=== PATIENT | female | born 1960 | race Caucasian/White ===

== ENCOUNTER → 2018-09-19 07:42 | Outpatient (CLI) | payer OTHER, SELFPAY ==
[2018-09-19 10:15] LABS: Cancer Antigen 125 < 6 U/mL (0-35)
== END ==
PROVIDERS: PCP Family Medicine Geriatric Medicine; Visit Provider Obstetrics & Gynecology
DX: N95.0 Postmenopausal bleeding (principal); Z80.9 Family history of malignant neoplasm, unspecified
CPT/HCPCS: 36415; 86304

== ENCOUNTER 2018-10-27 06:43 | Day surgery (SDC) | payer OTHER, SELFPAY ==
[2018-10-11 15:03] VITALS: BMI 33.5
[2018-10-27] VITALS (7 sets, daily range): BP systolic 101–125; BP diastolic 64–80; PULSE 77–95; RESP 10–18; TEMP 36.2–36.9; O2SAT 96–99; BMI 33.5
--- NOTE | 2018-10-27 | PATH_ITS ---
[facility] Accession Number: [id number] . 01 Material submitted: . endometrium - ENDOMETRIAL POLYP . 02 Diagnosis: Endometrial Polyp, Excision: Secretory endometrium with features of endometrial polyp. Negative for atypical hyperplasia or malignancy. [facility]/10/30/2018 . 02 Electronically signed: . Zenon Williamson MD, PhD, Pathologist NPI- [id number] . 01 Gross description: . ENDOMETRIAL POLYP: Received in formalin are minute fragments of mucoid and hemorrhagic material measuring 1.7 x 0.5 x 0.3 cm in aggregate. Submitted in toto in 1 cassette. /CKI /CKI . 02 Pathologist provided ICD-10: N84.0 . 02 CPT . 098053 Performed at: 01 [facility] [address] [id number] MD Oleksandr Bueno MD Phone: [phone] Performed at: 02 [facility] [address] [place], [place] [id number] MD Melissa Lomeli MD Phone: [phone]
--- NOTE | 2018-10-27 07:05 | PM.PREOP ---
Pre-operative Note Interval Note History & Physical reviewed/Exam performed by Physician: Yes Changes to H&P: No
--- NOTE | 2018-10-27 07:06 | PM.HP.1 ---
History of Present Illness Date Patient Seen: 10/27/18 Time Patient Seen: 07:06 Chief complaint: [id number] D&C HYSTEROSCOPY Narrative: Patient is a 58-year-old with postmenopausal bleeding and a thickened endometrial lining She is here for a D&C hysteroscopy and possible removal of polyp Patient History Medical History (Updated 10/11/18 @ 15:07 by Lana Teran RN) Nancy duct, cyst (Acute) HTN (hypertension) (Acute) History of endometrial biopsy (Acute 09/19/18) Postmenopausal bleeding (Acute) Surgical History (Updated 10/11/18 @ 15:07 by Lana Teran RN) History of colonoscopy (Acute) Social History Smoking Status: Unknown if ever smoked Family & Social History Tobacco & Substance use: Smoking Status Unknown if ever smoked Meds Home Medications Medication Instructions Recorded Confirmed Type losartan 100 mg tablet 100 mg PO DAILY 09/19/18 10/11/18 History Allergies Allergy/AdvReac Type Severity Reaction Status Date / Time epinephrine AdvReac reaction Verified 10/27/18 07:08 at dentist Exam Vital Signs (past 8 hours): HEENT: No thyromegaly, no anterior cervical or supraclavicular lymphadenopathy. Lungs:Clear to auscultation bilaterally, no wheezes. Cardiovascular: Regular rate and rhythm, no murmurs, rubs, or gallops. Abdomen: No scars. No hepatosplenomegaly. No masses palpable. External genitalia: Normal Vagina: Normal Cervix: Normal Bimanual exam: 7 Week size uterus. Mobile. Rectal: No masses. Assessment & Plan Assessment & Plan narrative: Assessment: 58-year-old with postmenopausal bleeding and a thickened endometrial lining Plan: D&C hysteroscopy with possible polypectomy The risks, benefits, and alternatives to the procedure were explained to the patient. The risks including bleeding, infection, and uterine perforation. She understands these risks and agrees to proceed. A full PAR-Q was held and consent form was signed. Time Spent With Patient Time with patient: 15-24 minutes
[2018-10-27] MEDS: LACTATED RINGERS 1,000 ML 42 ML IV (07:07)
--- NOTE | 2018-10-27 08:02 | SUR.OPER ---
Lithotomy on padded OR bed, head on pillow, arms secured on padded arm boards at <90 degrees abduction. Legs secured in padded yellow fins stirrups.
--- NOTE | 2018-10-30 07:03 | P.OP_ITS ---
Operative Date/Time/Diagnoses Date of procedure: 10/27/18 Time of procedure: 08:45 Pre-op diagnosis: Postmenopausal bleeding Thickened endometrial lining Post-op diagnosis: same Procedure: Procedures Operation Date: 10/27/18 07:45 Actual Procedures Side Surgeon p Hysteroscopy D&C Tamy Gill MD Indications: Postmenopausal bleeding Thickened endometrial lining Surgeon: Tamy Gill Anesthesia Type: General (LMA) Operative Notes Findings: Seven week size anteverted uterus Polyp originating from the left cornual area Polyp measured 1-1/2 by 1 cm Both fallopian tube ostia observed Closure Type: not applicable Specimen(s): endometrial polyp Estimated blood loss (mL): 5 Blood products transfused: none Procedure in detail: After informed consent was obtained, the patient was taken to the operating room where she was placed in the dorsal supine position. After adequate LMA general anesthesia was achieved, she was placed in the dorsal lithotomy position, and prepped and draped in the usual sterile fashion. A time-out was performed. A bivalve speculum was placed into the vagina and the anterior lip of the cervix grasped with a single-tooth tenaculum. Cervical os was sequentially dilated until the hysteroscope could pass easily into the endo metrial cavity. Initial inspection with the hysteroscope revealed the findings noted above. The hysteroscope was removed. The cervix was dilated to the # 8 Hegar dilator. The resectoscope was placed into the endometrial cavity. The polyp was resected in 2 pieces with settings at 60 cut and 40 cautery. Hemostasis was achieved. The instruments were removed from the uterus. The single-tooth tenaculum was removed from the anterior lip of the cervix. The bivalve speculum was removed from the vagina. Sponge, lap, and instrument counts were correct x2. The patient tolerated the procedure well, and was taken to PACU in stable condition. Complications: none Post-operative Condition: stable Disposition: PACU Plan for aftercare: Home after recovery
== END 2018-10-27 09:07 | disposition home or self-care (01) ==
PROVIDERS: PCP Family Medicine Geriatric Medicine; Visit Provider Obstetrics & Gynecology
PROC: 0UDB8ZZ Extraction of Endometrium, Via Natural or Artificial Opening Endoscopic (ICD-10-PCS; CPT 58558; principal; 2018-10-27 07:45)
DX: N84.0 Polyp of corpus uteri (principal); I10 Essential (primary) hypertension
CPT/HCPCS: 58558; J1100; J1885; J2405; J2704; J3010

== ENCOUNTER → 2020-09-16 15:37 | Outpatient (CLI) | payer OTHER, SELFPAY ==
[2020-09-16 16:16] LABS: Estimated Glomerular Filt Rate > 60.0 mL/min (>60)
== END ==
PROVIDERS: PCP Family Medicine; Referring Provider Surgery; Visit Provider Surgery
DX: K57.92 Diverticulitis of intestine, part unspecified, without perforation or abscess without bleeding (principal)
CPT/HCPCS: 36415; 82565

== ENCOUNTER → 2020-09-26 07:57 | Outpatient (CLI) | payer OTHER, SELFPAY ==
--- NOTE | 2020-09-26 08:35 | DI.CT.S_ITS ---
PROCEDURE: CT ABDOMEN PELVIS W CON INDICATIONS: Diverticulitis, ongoing symptoms TECHNIQUE: After the administration of intravenous contrast, 5 mm thick sections acquired from the diaphragm to the symphysis. 5 mm coronal and sagittal reformats were acquired. For radiation dose reduction, the following was used: automated exposure control, adjustment of mA and/or kV according to patient size. COMPARISON: None. FINDINGS: Image quality: Excellent. ABDOMEN: Lung bases: Lung bases are clear. Heart size is normal. Solid organs: Diffuse hepatic steatosis. Enlargement of the left lobe of the liver relative to the right lobe. No focal liver masses. Gallbladder is unremarkable. Biliary system is non dilated. Pancreas enhances normally. Spleen is normal in size and enhancement. No adrenal nodules. Kidneys demonstrate normal size and enhancement, without hydronephrosis. Peritoneum and bowel: Bowel loops demonstrate normal wall thickness and caliber. No free fluid or air. Sigmoid diverticulosis without evidence of diverticulitis. Nodes and vessels: No retroperitoneal or mesenteric adenopathy by size criteria. Aorta and inferior vena cava are normal in size. Miscellaneous: No ventral hernias. PELVIS: Genitourinary: Bladder wall thickness is normal. Miscellaneous: No inguinal hernias or adenopathy. Bones: No suspicious bony lesions. No vertebral body compression fractures. Lumbar degenerative change with at least moderate canal stenosis at L4-L5. There is a calcified left posterior lateral disc protrusion at L3-L4 narrowing the left lateral recess. IMPRESSION: 1. Diffuse hepatic steatosis and question of developing cirrhotic change. 2. Sigmoid diverticulosis without evidence of diverticulitis. 3. Left lateral recess stenosis at L3-L4. Central canal stenosis at L4-L5. 4. No evidence of acute abdominal process. Dictated by: Benja Metzger M.D. on 09/26/2020 at 9:01 Approved by: Benja Metzger M.D. on 09/26/2020 at 9:04
== END ==
PROVIDERS: PCP Family Medicine; Referring Provider Surgery; Visit Provider Surgery
DX: K57.32 Diverticulitis of large intestine without perforation or abscess without bleeding (principal); M48.061 Spinal stenosis, lumbar region without neurogenic claudication
CPT/HCPCS: 74177; Q9967

== ENCOUNTER → 2020-11-26 16:14 | Outpatient (CLI) | payer OTHER, SELFPAY ==
[2020-11-26 17:02] LABS: COVID19 -Nasal RAPID Negative (Negative)
== END ==
PROVIDERS: PCP Family Medicine; Visit Provider Surgery
DX: Z20.822 Contact with and (suspected) exposure to COVID-19 (principal)
CPT/HCPCS: 87635; C9803

== ENCOUNTER 2020-11-27 08:01 | Day surgery (SDC) | payer OTHER, SELFPAY ==
[2020-11-27 09:45] VITALS: BP 131/84; PULSE 82; RESP 14; TEMP 36.6; O2SAT 97; BMI 36.4
[2020-11-27] MEDS: SODIUM CHLORIDE 0.9% 1,000 ML 200 ML IV (09:58)
--- NOTE | 2020-11-27 11:19 | PM.HP.1 ---
History of Present Illness History of Present Illness Date Patient Seen: 11/27/20 Time Patient Seen: 11:19 Chief complaint: DX COLONOSCOPY Narrative: This is a 60-year-old woman with history of diverticulosis, hypertension, mitral valve prolapse, abdominal surgery for uterine cyst. She has a strong family history of colon cancer. Her sister of colon cancer at age 46, and her brother of colon cancer at age 58. Her last colonoscopy was for years ago, and she was told to have a repeat colonoscopy in 4 years. She has had diverticulitis 3 months ago, which was treated with antibiotics. She occasionally has a twinge in the left side of her abdomen, which she thinks may be due to a problem in her spine. ROS: She reports some night sweats in addition to the other symptoms mentioned above. Thirteen system review is otherwise negative other than as mentioned below and in HPI. PE: GENERAL: Well groomed and cooperative. Appears stated age. Answers questions promptly and appropriately. Vital signs noted. HENT: Normocephalic, atraumatic. Hearing intact. EYES: Conjunctiva pink, sclera white, no periorbital swelling. CARDIOVASCULAR: Regular rate. No pedal edema. RESPIRATORY: Non-tachypneic, breathing comfortably on room air. GASTROINTESTINAL: Abdomen soft and non-distended, no palpable masses, mild tenderness to palpation left lower quadrant GENITALURINARY: No flank tenderness. MUSCULOSKELETAL: Equal tone and mass bilaterally. SKIN: Warm, dry, soft, appropriate color for ethnicity. No other lesions, rashes, or wounds. NEURO: Alert and Oriented X 3. No gross sensory deficits, or cognitive issues. PSYCH: Appropriate affect and mood. Patient History Medical History Diverticulitis Nancy duct, cyst History of endometrial biopsy (09/19/18) HTN (hypertension) Mitral valve prolapse Postmenopausal bleeding Surgical History History of colonoscopy Family & Social History Family History Mother Hypertension Breast cancer Sister Diabetes mellitus Breast cancer Colon cancer Brother Colon cancer Father Prostate cancer Social History: household members spouse Tobacco & Substance use: Smoking Status Never smoker alcohol intake current alcohol intake frequency 3 or more drinks per day Substance Use Type does not use Meds Home Medications and Allergies Home Medications Medication Instructions Recorded Confirmed Type losartan 100 mg tablet 100 mg PO DAILY 09/19/18 11/27/20 History multivitamin 1 tab PO DAILY 09/16/20 11/27/20 History sodium,potassium,mag sulfates 17.5 177 ml PO DAILY #354 ml 10/22/20 Rx gram-3.13 gram-1.6 gram oral soln psyllium husk [Metamucil] 2 tbsp PO DAILY 11/27/20 11/27/20 History Allergies Allergy/AdvReac Type Severity Reaction Status Date / Time epinephrine AdvReac reaction Verified 11/27/20 09:41 at dentist Exam Vital Signs (past 8 hours): - 11/27/20 09:45 Temperature 97.8 F Pulse Rate 82 Respiratory Rate 14 Blood Pressure 131/84 Pulse Oximetry 97 Oxygen Delivery Method Room Air Assessment & Plan Assessment and plan (1) Family history of malignant neoplasm of colon in first degree relative diagnosed when younger than 60 years of age: Status: Acute (2) Diverticulosis: Status: Acute (3) Abdominal pain: Qualifiers: Abdominal location: left lower quadrant Qualified Code(s): R10.32 - Left lower quadrant pain Status: Acute Assessment & Plan narrative: Risks and benefits of screening colonoscopy and possible polypectomy were discussed with the patient including risk of bleeding, perforation, need for additional procedures, risks of anesthesia. The patient desires to proceed with the colonoscopy procedure. COVID-19 COVID-19 status: Negative Result date/Date tested (Pos, Neg/Pending): 11/26/20 Time Spent With Patient Time with patient: 15-24 minutes
--- NOTE | 2020-11-27 11:21 | P.OP.ENDO_ITS ---
Operative Date/Time/Diagnoses Date of procedure: 11/27/20 Time of procedure: 11:22 Pre-op diagnosis: History of diverticulitis, high risk family history for colon cancer, due for screening colonoscopy Post-op diagnosis: other (Diverticulosis, no polyps) Procedure & Clinicians Study performed: Colonoscopy Procedural sedation performed by the endoscopist Same procedure as scheduled: Yes Indications: High risk family history for colon cancer, due for screening colonoscopy Surgeon: Shell Grewal Procedure Notes SCOAP/Timeout: Performed Procedure in detail: The patient was brought to the room and placed in left lateral decubitus position with all bony prominences padded. A time-out was performed and then the patient was given procedural sedation starting with 4 mg of Versed and 100 mcg of fentanyl. An additional 3 mg of Versed and 100 micro g of fentanyl were given during the procedure. Vitals were monitored throughout the procedure and remained stable. Once adequately sedated, the procedure was begun. A rectal exam was performed revealing no abnormalities. The colonoscope was then introduced to the rectum and advanced to the cecum in the usual fashion. The cecum was identified by the appendiceal orifice, the mucosal tri- fold, and the ileocecal valve. The scope was then retracted while rotating side to side and examining each mucosal fold. No polyps were seen. Or diverticulosis seen in the sigmoid colon, no evidence of active diverticulitis. At the conclusion of the procedure retroflexion was performed and small grade 1-2 internal hemorrhoids without stigmata of bleeding were seen. The scope was then withdrawn from the rectum the procedure was concluded. The patient tolerated the procedure well and was transferred to the PACU in stable condition. Scope withdrawal time: 7 Sedation minutes: 17 Findings: diverticulosis Specimen(s): none sent Complications: none Impression: Diverticulosis, no polyps Post-procedure Recommendations: Colonscopy in 5 years (Due to family history) and High fiber diet Follow up: as needed Disposition: PACU
[2020-11-27] MEDS: fentaNYL 250 MCG/5 ML INJ IV (11:36)
[2020-11-27] MEDS: MIDAZOLAM 5 MG/5 ML VIAL IV (11:36)
[2020-11-27 11:49] VITALS: BP 106/70; PULSE 76; RESP 16; TEMP 37; O2SAT 97
[2020-11-27 11:52] VITALS: BP 110/68; PULSE 83; RESP 12; O2SAT 96
[2020-11-27 11:54] VITALS: PULSE 82; RESP 16; O2SAT 97
[2020-11-27 11:57] VITALS: BP 110/68; PULSE 91; RESP 16; O2SAT 97
== END 2020-11-27 12:07 | disposition home or self-care (01) ==
PROVIDERS: PCP Family Medicine; Referring Provider Surgery; Visit Provider Surgery
PROC: 0DJD8ZZ Inspection of Lower Intestinal Tract, Via Natural or Artificial Opening Endoscopic (ICD-10-PCS; CPT 45378; principal; 2020-11-27 09:15)
DX: Z12.11 Encounter for screening for malignant neoplasm of colon (principal); Z80.0 Family history of malignant neoplasm of digestive organs; I10 Essential (primary) hypertension; K57.30 Diverticulosis of large intestine without perforation or abscess without bleeding; K64.0 First degree hemorrhoids
CPT/HCPCS: 45378; 99152; J2250; J3010